=== PATIENT | female | born 1960 | race Caucasian/White ===

== ENCOUNTER 2017-09-07 16:46 | Emergency (ER) | payer OTHER ==
[~2017-09-07] VITALS: Ht 167.6 cm; Wt 104.0 kg
[~2017-09-07 16:46] MED LIST: ASPI81TA82 PO; CALC250 PO; HYDR10SO PO; LEXA10TA PO; PRIL20CA PO; RIVA10 PO; SHOWER/TUB CHAIR LG; Z.0.WHEELELR; [UNRECOGNIZED DRUG - SUPPLY]; [UNRECOGNIZED DRUG - SUPPLY]; [UNRECOGNIZED DRUG - SUPPLY]
[2017-09-07 16:54] VITALS: BP 144/74; PULSE 81; RESP 17; TEMP 99.5; O2SAT 99
[2017-09-07] MEDS ORDERED: ONDANSETRON HCL 4 MG/2 ML VIAL IV PUSH ONE (17:15)
[2017-09-07] MEDS ORDERED: VANCOMYCIN INJ 1,000 MG in SODIUM CHLOR 0.9% 250 ML INJ 250 ML IV ONE (17:15)
[2017-09-07] MEDS ORDERED: SODIUM CHLORIDE 0.9% FLUSH 10 ML FLUSH IVF PRN (17:15)
[2017-09-07] MEDS ORDERED: MORPHINE SULFATE 2 MG/ML SYRINGE IV PUSH ONE (17:15)
--- NOTE | 2017-09-07 17:15 | PD ---
HPI . Thigh pain Chief Complaint: Skin Problem Time Seen by Provider: 17:06 Travel History International Travel<30 days: No Contact w/Intl Traveler<30days: No Traveled to known affect area: No History of Present Illness HPI Patient presents with a chief complaint of left thigh pain. She works for hospice. She states that she was in a home last weekend and bumped her leg against something. She is not even sure exactly what she bumped it on. She states that it was sore after that but she did not really think very much of it. Then approximately 3 days ago she had some subjective body aches and fevers and chills. She noticed that her left lateral thigh was red and swollen. She went to urgent care the next day and was given a shot of clindamycin and a prescription for Bactrim. She has been taking that for the past 2 days. Despite that, her redness and swelling is getting worse rather than better. She no longer has the systemic symptoms. PFSH Past Medical History Arthritis: Yes Cancer: No Cardiac Catheterization: Yes Cardiovascular Problems: Yes ([place]) High Cholesterol: No Chest Pain: Yes Congestive Heart Failure: No Cerebrovascular Accident: No Coronary Artery Disease: Yes Diabetes: No Endocrine: No GERD: Yes Genitourinary: No Hepatitis: No Hiatal Hernia: No Immune Disorder: No Musculoskeletal: Yes (OA- CHRISTEN KNEE REPLACEMENT) Neurologic: Yes Psychiatric: No Reproductive: No (HX HYSTERECTOMY) Respiratory: No Myocardial Infarction: Yes (2003) Seizures: No Thyroid Disease: No ?: Not Menopausal: Yes : 2 Para: 2 Past Surgical History Body Medical Devices: CARDIAC STENT X2; EXTERNAL FIXATION RIGHT TIBIA Cardiac Surgery: Yes (HEART CATH - INSERTION 2 STENTS) Coronary Stent: Yes (X2 IN LAD: 2003) Gynecologic Surgery: Yes (2009 HYSTERECTOMY BILATERAL SALPINGO-OOPHORECTOMY) Hysterectomy: Yes (2008) Joint Replacement: Yes (BILATERAL KNEES 2009: LEFT KNEE, 2010: RIGHT KNEE) Oral Surgery: Yes (DENTURES) Social History Alcohol Use: Yes ("VERY RARELY") Tobacco Use: Yes (1/2 PPD) Substance Use: No Allergies-Medications (Allergen,Severity, Reaction): Coded Allergies: No Known Allergies (Unverified Adverse Reaction, Unknown, 09/07/17) Reported Meds & Prescriptions Reported Meds & Active Scripts Active Oscal-D 250 MG /125 UNITS Tab (Calcium/Vitamin D) 250 Mg Tab 250 Mg PO TID Lexapro (Escitalopram Oxalate) 10 Mg Tab 10 Mg PO DAILY Xarelto 10 Mg Tab (Rivaroxaban) 10 Mg Tab 10 Mg PO DAILY Hydrocodone/Acetaminophen 10 mg/325 mg 1 Tab 1-2 Tab PO Q4-Q6 PRN Aspir-81 (Aspirin) 81 Mg Tab 81 Mg PO DAILY Prilosec 20 mg (Omeprazole) 20 Mg Cap 20 Mg PO DAILY [Walker tray] Ea [Wide sock Aid] Ea [Hand Bed Rail] Ea Shower/Tub Chair Lg (Device) Device 1 Ea Wheelchair Elevated Leg Rest (Wheelelr) Device 1 Unit Review of Systems Except as stated in HPI: all other systems reviewed are Neg Physical Exam Narrative GENERAL: Awake and alert and in no acute distress. SKIN: Warm and dry. Area of erythema, warmth and tenderness on the left lateral thigh. There are 2 discrete areas of induration but neither or fluctuance. HEAD: Normocephalic/atraumatic. EYES: Pupils are equal. Extraocular movements are intact. NECK: Normal range of motion. CARDIOVASCULAR: Regular rate and rhythm. RESPIRATORY: Nonlabored respirations. MUSCULOSKELETAL: Atraumatic. NEUROLOGICAL: Nonfocal. PSYCHIATRIC: Appropriate mood and affect. Data Data Last Documented VS Vital Signs Date Time Temp Pulse Resp B/P (MAP) Pulse Ox O2 Delivery O2 Flow Rate FiO2 09/07/17 16:54 99.5 81 17 144/74 (97) 99 Orders Orders Basic Metabolic Panel (Bmp) (09/07/17 17:06) Complete Blood Count With Diff (09/07/17 17:06) Blood Culture (09/07/17 17:06) Iv Access Insert/Monitor (09/07/17 17:06) Sodium Chloride 0.9% Flush (Ns Flush) (09/07/17 17:15) Morphine Inj (Morphine Inj) (09/07/17 17:15) Ondansetron Inj (Zofran Inj) (09/07/17 17:15) Vancomycin Inj (Vancomycin Inj) (09/07/17 17:15) Labs Laboratory Tests Test 09/07/17 17:20 White Blood Count 13.0 TH/MM3 Red Blood Count 4.44 MIL/MM3 Hemoglobin 13.1 GM/DL Hematocrit 38.5 % Mean Corpuscular Volume 86.8 FL Mean Corpuscular Hemoglobin 29.4 PG Mean Corpuscular Hemoglobin Concent 33.9 % Red Cell Distribution Width 14.0 % Platelet Count 413 TH/MM3 Mean Platelet Volume 9.7 FL Neutrophils (%) (Auto) 74.1 % Lymphocytes (%) (Auto) 14.1 % Monocytes (%) (Auto) 7.0 % Eosinophils (%) (Auto) 2.6 % Basophils (%) (Auto) 2.2 % Neutrophils # (Auto) 9.7 TH/MM3 Lymphocytes # (Auto) 1.8 TH/MM3 Monocytes # (Auto) 0.9 TH/MM3 Eosinophils # (Auto) 0.3 TH/MM3 Basophils # (Auto) 0.3 TH/MM3 CBC Comment DIFF FINAL Differential Comment Blood Urea Nitrogen 12 MG/DL Creatinine 1.40 MG/DL Random Glucose 88 MG/DL Calcium Level 9.2 MG/DL Sodium Level 137 MEQ/L Potassium Level 5.6 MEQ/L Chloride Level 108 MEQ/L Carbon Dioxide Level 23.0 MEQ/L Anion Gap 6 MEQ/L Estimat Glomerular Filtration Rate 39 ML/MIN MDM Medical Decision Making Medical Screen Exam Complete: Yes Emergency Medical Condition: Yes Differential Diagnosis My differential diagnosis includes but is not limited to localized wound infection, cellulitis, abscess Narrative Course This patient presents with redness, warmth, swelling and tenderness to the left lateral thigh. She has 2 distinct areas of induration that are not fluctuant. She has been on Bactrim for 2 days and had a shot of clindamycin 2 days ago. Despite that, she is getting worse rather than better. I have ordered a CBC, BMP and blood culture. She will be treated here with vancomycin 1 g IV. CBC & BMP Diagram 09/07/17 17:20 Calcium Level 9.2 I feel that this potassium is falsely elevated. There was probably some hemolysis of the sample. I will simply have her get that rechecked as an outpatient. I would like to have her come back in 2 days for recheck. I will add Keflex to cover possible strep. Diagnosis Primary Impression: Cellulitis and abscess of leg Patient Instructions: Abscess (ED), General Instructions Med/Other Pt SpecificInfo: Prescription(s) given Scripts Cephalexin (Keflex) 500 Mg Capsule 500 MG PO TID for Infection, #30 CAP 0 Refills Prov: April Seo MD 09/07/17 Disposition: 01 DISCHARGE HOME Condition: Stable April Seo MD Sep 07, 2017 17:15
[2017-09-07 17:36] LABS: AUTOMATED NEUTROPHIL # 9.7 TH/MM3 (1.8-7.7); BASOPHIL # 0.3 TH/MM3 (0-0.2); BASOPHIL % 2.2 % (0.0-2.0); EOSINOPHIL # 0.3 TH/MM3 (0-0.4); EOSINOPHIL % 2.6 % (0.0-4.0); HEMATOCRIT 38.5 % (35.0-46.0); HEMOGLOBIN 13.1 GM/DL (11.6-15.3); LYMPH % 14.1 % (9.0-44.0); LYMPHOCYTE # 1.8 TH/MM3 (1.0-4.8); MEAN CELL VOLUME 86.8 FL (80.0-100.0); MEAN CORPUSCULAR HEMOGLOBIN 29.4 PG (27.0-34.0); MEAN CORPUSCULAR HGB CONC 33.9 % (32.0-36.0); MEAN PLATELET VOLUME 9.7 FL (7.0-11.0); MONOCYTE # 0.9 TH/MM3 (0-0.9); NEUT % 74.1 % (16.0-70.0); PLATELET COUNT 413 TH/MM3 (150-450); RED BLOOD COUNT 4.44 MIL/MM3 (4.00-5.30)
[2017-09-07 17:50] LABS: CALCIUM 9.2 MG/DL (8.5-10.1)
[2017-09-07 17:54] LABS: CREATININE 1.4 MG/DL (0.50-1.00)
[2017-09-07] MEDS ORDERED: CEPH-460 PO (18:21)
[2017-09-07 19:27] VITALS: BP 142/74; PULSE 78; RESP 18; O2SAT 97
== END 2017-09-07 19:29 | disposition home or self-care (01) ==
LOC: PHED 16:46
DX: L03.116 Cellulitis of left lower limb (principal); L02.416 Cutaneous abscess of left lower limb; B95.7 Other staphylococcus as the cause of diseases classified elsewhere; I25.10 Atherosclerotic heart disease of native coronary artery without angina pectoris; I25.2 Old myocardial infarction; K21.9 Gastro-esophageal reflux disease without esophagitis; M19.90 Unspecified osteoarthritis, unspecified site; F17.200 Nicotine dependence, unspecified, uncomplicated; Z96.653 Presence of artificial knee joint, bilateral
CPT/HCPCS: 80048; 85025; 86403; 87040; 87077; 87186; 87205; 96365; 96375; 99284; J2270; J2405; J3370; J7050

== ENCOUNTER 2017-09-09 10:03 | Emergency (ER) | payer OTHER ==
[~2017-09-09] VITALS: Ht 167.6 cm; Wt 103.0 kg
[~2017-09-09 10:03] MED LIST changes: -ASPI81TA82 PO; -CALC250 PO; +CEPH-460 PO; -HYDR10SO PO; -LEXA10TA PO; -PRIL20CA PO; -RIVA10 PO; -SHOWER/TUB CHAIR LG; -Z.0.WHEELELR; -[UNRECOGNIZED DRUG - SUPPLY]; -[UNRECOGNIZED DRUG - SUPPLY]; -[UNRECOGNIZED DRUG - SUPPLY]
[2017-09-09 10:08] VITALS: BP 147/76; PULSE 80; RESP 18; TEMP 97.9; O2SAT 98
[2017-09-09] MEDS ORDERED: DIFL150T PO (11:18)
--- NOTE | 2017-09-09 11:20 | PD ---
HPI Chief Complaint: Skin Problem Time Seen by Provider: 10:19 Travel History International Travel<30 days: No Contact w/Intl Traveler<30days: No Traveled to known affect area: No History of Present Illness HPI 57 old female here with abscess to left thigh. Patient is currently on Bactrim and Keflex. She was instructed to return in 2 days for recheck and possible incision and drainage. She denies any fevers, chills, increasing pain. Symptom severity is moderate. She reports constant, throbbing pain at the site of the abscess on the left thigh. No aggravating or alleviating factors. PFSH Past Medical History Arthritis: Yes Cancer: No Cardiac Catheterization: Yes Cardiovascular Problems: Yes ([place]) High Cholesterol: No Chest Pain: Yes Congestive Heart Failure: No Cerebrovascular Accident: No Coronary Artery Disease: Yes Diabetes: No Diminished Hearing: No Endocrine: No Gastrointestinal Disorders: Yes (GERD) GERD: Yes Genitourinary: No Hepatitis: No Hiatal Hernia: No Immune Disorder: No Implanted Vascular Access Dvce: Yes Musculoskeletal: Yes (OA- CHRISTEN KNEE REPLACEMENT) Neurologic: Yes Psychiatric: No Respiratory: No Immunizations Current: Yes Myocardial Infarction: Yes (2003) Seizures: No Thyroid Disease: No Influenza Vaccination: Yes ?: Not Menopausal: Yes : 2 Para: 2 Past Surgical History Body Medical Devices: CARDIAC STENT X2; EXTERNAL FIXATION RIGHT TIBIA Cardiac Surgery: Yes (HEART CATH - INSERTION 2 STENTS) Coronary Stent: Yes (X2 IN LAD: 2003) Gynecologic Surgery: Yes (2008 HYSTERECTOMY BILATERAL SALPINGO-OOPHORECTOMY) Hysterectomy: Yes (2008) Joint Replacement: Yes (BILATERAL KNEES 2009: LEFT KNEE, 2010: RIGHT KNEE) Oral Surgery: Yes (DENTURES) Other Surgery: Yes (10/19/14 ORIF RIGHT PATELLA) Social History Alcohol Use: Yes (occ) Tobacco Use: Yes (1 pk) Substance Use: No Allergies-Medications (Allergen,Severity, Reaction): Coded Allergies: No Known Allergies (Unverified Adverse Reaction, Unknown, 09/09/17) Reported Meds & Prescriptions Reported Meds & Active Scripts Active Ultram (Tramadol HCl) 50 Mg Tab 50 Mg PO Q6H PRN Diflucan (Fluconazole) 150 Mg Tab 150 Mg PO ONCE Keflex (Cephalexin) 500 Mg Capsule 500 Mg PO TID Review of Systems Except as stated in HPI: all other systems reviewed are Neg General / Constitutional: No: Fever Physical Exam Narrative GENERAL: Alert and well-appearing 57-year-old female SKIN: Warm and dry. HEAD: Normocephalic. EYES: No injection or drainage. NECK: Supple RESPIRATORY: No accessory muscle use. GASTROINTESTINAL: nondistended. MUSCULOSKELETAL: No cyanosis, or edema. LLE: 3CM tender and indurated abscess. No surrounding cellulitis. No lymphangitis. Palpable distal pulses. Normal sensation. Brisk cap refill. BACK: No CVA tenderness. Data Data Last Documented VS Vital Signs Date Time Temp Pulse Resp B/P (MAP) Pulse Ox O2 Delivery O2 Flow Rate FiO2 09/09/17 10:08 97.9 80 18 147/76 (99) 98 MDM Medical Decision Making Medical Screen Exam Complete: Yes Emergency Medical Condition: Yes Differential Diagnosis Abscess, cellulitis, hematoma Narrative Course 57-year-old female here with an abscess to her left thigh. She is currently on antibiotics Keflex and Bactrim. She was instructed to return for recheck in 2 days for possible incision and drainage. Abscess was incised and drained today. Patient tolerated procedure well. She is to continue current antibiotics. She is requesting Diflucan for yeast infection due to antibiotic use. Procedures Procedure Narrative INCISION AND DRAINAGE OF ABSCESS: The area was prepped and was sterilely draped. A subcutaneous wheal of 1% lidocaine with epi with a total number 1 mL was used to anesthetize the area properly. A number 11 scalpel was used to make a 0.5 -cm incision across the area of the abscess. The abscess was drained , complex loculations were broken down, and irrigated with normal saline. Sterile dressing applied. Patient advised to have packing removed in two days. Diagnosis Primary Impression: Abscess Referrals: Primary Care Physician Departure Forms: Tests/Procedures, Work Release Enter return to work date: September 10, 2017 Additional Instructions: Antibiotics as directed. Cleanse area daily with soap and water. Cover with a clean dry dressing. Scripts Tramadol (Ultram) 50 Mg Tab 50 MG PO Q6H Y for PAIN, #10 TAB 0 Refills Prov: Meche Keith [employer] OFFICER 09/09/17 Fluconazole (Diflucan) 150 Mg Tab 150 MG PO ONCE for Infection, #1 TAB 0 Refills Prov: Meche Keith [employer] SECURITY OFFICER 09/09/17 Disposition: 01 DISCHARGE HOME Condition: Stable Meche Keith Sep 09, 2017 11:20
[2017-09-09] MEDS ORDERED: TRAM50 PO (11:33)
== END 2017-09-09 11:55 | disposition home or self-care (01) ==
LOC: PHEFT 10:03
DX: L02.416 Cutaneous abscess of left lower limb (principal); I25.10 Atherosclerotic heart disease of native coronary artery without angina pectoris; M19.90 Unspecified osteoarthritis, unspecified site; K21.9 Gastro-esophageal reflux disease without esophagitis; I25.2 Old myocardial infarction; F17.200 Nicotine dependence, unspecified, uncomplicated; Z96.653 Presence of artificial knee joint, bilateral; Z95.5 Presence of coronary angioplasty implant and graft
CPT/HCPCS: 10060